=== PATIENT | female | born 1945 | race Caucasian/White ===

== ENCOUNTER 2019-04-09 05:44 | Day surgery (SDC) ==
[2019-03-26 07:53] LABS: URINE SOURCE CLEAN CATCH
[2019-03-26 08:29] LABS: BASO# 0.02 X1000 (0.0-0.2); BASO% 0.3 % (0.0-0.8); EOS# 0.32 X1000 (0.0-0.7); EOS% 4.8 % (0.0-10.0); HEMATOCRIT 41.1 % (37.0-47.0); HEMOGLOBIN 13.6 g/dL (12.0-16.0); LYMPH# 1.11 X1000 (1.2-3.4); LYMPH% 16.6 % (20.5-51.1); MCH 30.8 PG (27-31); MCHC 33.1 g/dL (33-37); MCV 93.2 FL (81-99); MONO# 0.28 X1000 (0.11-0.59); MONO% 4.2 % (1.7-9.3); MPV 10.2 FL (7.4-10.4); NEUT# 4.96 X1000 (1.4-6.5); NEUT% 74.1 % (42.2-75.2); PLT 220 X1000 (130-400); RBC 4.41 XMIL (4.2-5.4); RDW 13.1 % (11.5-14.5); WBC 6.69 X1000 (4.8-10.8)
[2019-03-26 08:32] LABS: BILIRUBIN URINE NEGATIVE (NEGATIVE); BLOOD URINE NEGATIVE (NEGATIVE); COLOR YELLOW; GLUCOSE URINE NEGATIVE (NEGATIVE); KETONE URINE NEGATIVE (NEGATIVE); LEUKOCYTES URINE NEGATIVE (NEGATIVE); NITRITE URINE NEGATIVE (NEGATIVE); PROTEIN URINE NEGATIVE (NEGATIVE); SP GRAVITY URINE 1.012; TURBIDITY URINE CLEAR (CLEAR); UROBILINOGEN URINE NORMAL (NORMAL)
[2019-03-26 08:36] LABS: UR EPITHELIAL CELLS <10 /HPF (<10); URINE BACTERIA NEGATIVE /HPF; URINE RBC <10 /HPF (<10); URINE WBC <10 /HPF (<10)
[2019-03-26 08:37] LABS: INR 0.99; PROTIME 13.2 Seconds (11.0-16.0)
[2019-03-26 08:38] LABS: PTT 29.3 Seconds (22.3-41.8)
[2019-03-26 08:46] LABS: AGAP 12; BUN 15 mg/dL (8-22); CALCIUM 9.2 mg/dL (8.8-10.2); CHLORIDE 103 mmol/L (98-107); COSMO 286; CREATININE 0.9 mg/dL (0.5-0.9); ESTIMATED GFR > 60; GLUCOSE 96 mg/dL (70-104); POTASSIUM 4.3 mmol/L (3.5-5.1); SODIUM 143 mmol/L (136-145); TCO2 28 mmol/L (25-35)
--- NOTE | 2019-03-26 08:48 | EKG Report ---
Test Performed on : 03/26/2019 08:04:58 AM Test Reason : PAT Blood Pressure : / mmHG Vent. Rate : 057 BPM Atrial Rate : 057 BPM P-R Int : 146 ms QRS Dur : 082 ms QT Int : 444 ms P-R-T Axes : 072 082 075 degrees QTc Int : 432 ms Sinus bradycardia. Otherwise normal ECG No previous ECGs available Confirmed by Tony LR, Darnell Martin ([id number]) on 03/27/2019 7:42:33 PM
[2019-04-09] MEDS ORDERED: COLACE ONE (06:24)
[2019-04-09] MEDS ORDERED: LR 1,000 ML ONE (06:25)
[2019-04-09] MEDS ORDERED: PEPCID ONE (06:25)
[2019-04-09] MEDS ORDERED: REGLAN ONE (06:25)
[2019-04-09] MEDS ORDERED: CELEBREX ONE (06:25)
[2019-04-09] MEDS ORDERED: LYRICA ONE (06:25)
[2019-04-09] MEDS ORDERED: KEFZOL 1 GM/D5W 1 GM/50 ML IVPB ONE (06:25)
[2019-04-09] MEDS ORDERED: PRILOSEC PO PRN (06:30)
[2019-04-09] MEDS ORDERED: DURAMORPH ONE (06:50)
[2019-04-09] MEDS ORDERED: MARCAINE 0.25% PF ONE (06:50)
[2019-04-09] MEDS ORDERED: TORADOL ONE (06:50)
[2019-04-09] MEDS ORDERED: VANCOMYCIN ONE (06:51)
[2019-04-09] MEDS ORDERED: SODIUM CHLORIDE 0.9% ONE (06:51)
[2019-04-09] MEDS ORDERED: EXPAREL 1.3% ONE (06:51)
[2019-04-09] MEDS ORDERED: DIPRIVAN 1% ONE ×2 (07:03→08:22)
[2019-04-09] MEDS ORDERED: XYLOCAINE-MPF 2% ONE (07:09)
[2019-04-09] MEDS ORDERED: FENTANYL ONE (07:30)
[2019-04-09] MEDS: CYKLOKAPRON 1,000 MG/NS 2,000 MG/200 ML IVPB ONE ×2 (07:45→09:15)
[2019-04-09] MEDS ORDERED: DECADRON ONE (09:16)
[2019-04-09] MEDS ORDERED: OFIRMEV 1000 MG/ISOTONIC SOLN 1,000 MG/100 ML BOTTLE ONE (09:16)
[2019-04-09] MEDS ORDERED: ZOFRAN ONE (09:16)
[2019-04-09] MEDS ORDERED: EPHEDRINE ONE (09:33)
[2019-04-09] MEDS ORDERED: NS 1,000 ML ONE (10:09)
[2019-04-09 10:16] LABS: URINE SOURCE CATH
[2019-04-09 10:23] LABS: BILIRUBIN URINE NEGATIVE (NEGATIVE); BLOOD URINE TRACE (NEGATIVE); COLOR YELLOW; GLUCOSE URINE NEGATIVE (NEGATIVE); KETONE URINE NEGATIVE (NEGATIVE); LEUKOCYTES URINE NEGATIVE (NEGATIVE); NITRITE URINE NEGATIVE (NEGATIVE); PROTEIN URINE NEGATIVE (NEGATIVE); SP GRAVITY URINE 1.016; TURBIDITY URINE CLEAR (CLEAR); UR EPITHELIAL CELLS <10 /HPF (<10); URINE BACTERIA NEGATIVE /HPF; URINE RBC <10 /HPF (<10); URINE WBC <10 /HPF (<10); UROBILINOGEN URINE NORMAL (NORMAL)
--- NOTE | 2019-04-09 10:42 | Diag Imaging Result Doc PS360 ---
KNEE 1-2 VIEWS-LEFT - 04/09/2019 INDICATION: L TKA TECHNIQUE: Two views COMPARISON: None FINDINGS: There has been left total knee arthroplasty with patellar resurfacing. Alignment is anatomic. No hardware fracture or loosening. IMPRESSION: No complication. Electronically signed by Sim Billings 04/09/2019 10:40 AM
[2019-04-09] MEDS: INDERAL PO SCH (10:50)
[2019-04-09] MEDS ORDERED: OXY IR PO PRN ×2 (11:00)
[2019-04-09] MEDS ORDERED: ZOFRAN PO PRN (11:00)
[2019-04-09] MEDS ORDERED: NS 1,000 ML IV SCH (11:00)
[2019-04-09] MEDS ORDERED: MILK OF MAGNESIA PO PRN (11:00)
[2019-04-09] MEDS ORDERED: MORPHINE IV PRN ×3 (11:00)
[2019-04-09] MEDS: CELEXA PO SCH (12:24)
[2019-04-09] MEDS: ZYRTEC PO SCH (12:24)
[2019-04-09] MEDS: DETROL LA PO SCH (12:34)
[2019-04-09] MEDS: KEFZOL 1 GM/D5W 1 GM/50 ML IVPB IV SCH ×2 (14:35→22:52)
[2019-04-09] MEDS: TYLENOL PO SCH ×2 (15:14→22:52)
--- NOTE | 2019-04-09 20:54 | OPERATIVE NOTE ---
PROCEDURE DATE: 04/09/2019 PREOPERATIVE DIAGNOSIS: Degenerative osteoarthritis, left knee. POSTOPERATIVE DIAGNOSIS: Degenerative osteoarthritis, left knee. PROCEDURE: Left total knee arthroplasty with DePuy Attune size 5 narrow posterior stabilized femur, size 5 tibial tray, 8 mm rotating platform tibial insert, and a 35 mm medialized anatomic patella. SURGEON: Chan Monsivais MD [id number] PROGRAMMER ANALYST: POLY Navarrete who was necessary for proper positioning, retraction and manipulation of the extremity during the case. SECOND CLINICAL MICROBIOLOGIST: POLY Rodriguez and Wilfredo Phelps RN. ANESTHESIA: Spinal. IV FLUIDS: 1300 mL of lactated Ringer's. ESTIMATED BLOOD LOSS: 25 mL. TOURNIQUET TIME: 75 minutes at 350 mmHg. COMPLICATIONS: None. INDICATIONS: The patient is a 74-year-old female with chronic history of worsening pain and discomfort of the left knee. She has continued with pain and discomfort despite appropriate nonoperative treatment. X-rays revealed degenerative osteoarthritis. Recommendation to proceed with left total knee arthroplasty was offered. Risks and benefits of surgery were explained, including the risks of anesthesia, , bleeding, infection, failure to relieve pain, postoperative stiffness, nerve injury, blood clots, and other imponderables. All questions were answered. The patient wished to proceed with surgery. DETAILS OF OPERATION: The patient was taken to the operating room and underwent spinal anesthesia. After adequate anesthesia was obtained, the patient was placed supine on the operating table. The left lower extremity was subsequently prepped and draped in usual sterile fashion. Esmarch was used to exsanguinate the left lower extremity, and the tourniquet was inflated to 300 mmHg. A standard anterior incision was made with a skin knife. Medial and lateral skin envelopes were developed. Standard medial parapatellar arthrotomy was then performed. Patella fat pad was excised. Retractors were then placed and appeared approximately + 1 cm anterior to the PCL insertion, and starting reamer was passed. The intramedullary guide with a distal femoral cutting block was pinned in position. Distal femoral cut was then performed in standard fashion. A sizing block was placed and measured to a size 5. Corresponding pins were placed. A size 5 cutting block was pinned in position. Anterior, posterior and chamfer cuts were then made. Attention was then turned to the proximal tibia. Using the extramedullary guide, the proximal tibia cutting block was pinned in position. Had good alignment confirmed with the alignment raul. The proximal tibia was then resected. The medial and lateral menisci were excised. A curved osteotome was used to remove the posterior osteophytes off the distal femur. A spacer block was then placed and had good soft tissue balance in both flexion and extension. Attention was turned back to the proximal tibia where a size 5 tibial tray appeared to be correct size. It was pinned in position. This was followed by a central reamer and a fin punch. A box cutting guide was pinned on the distal femur. A box cut was performed. A trial femoral component was then placed, and 2 lug holes were drilled. Trial tibial insert was then placed and had good soft tissue balancing. Patella was everted and resected in standard fashion. A 35 appeared to be correct size. Corresponding holes were drilled. A trial component was then placed and had good patellofemoral tracking and soft tissue balancing. The trial components were then removed. Copious irrigation was then performed with antibiotic pulsatile lavage while vancomycin was mixed with cement on back table. Sequential cementing was then performed first with the tibial tray, and excess cement was removed with a [place]uffs followed by the femoral component. Excess cement was removed with a [place]uffs followed by trial tibial insert. Full extension and axial loading was maintained while the cement cured. Patella component was cemented in standard fashion. Patella clamp was placed. While cement was curing, Exparel was placed in deep soft tissue as well as the subcutaneous tissue. After cement had cured, peripheral cement was removed with a small osteotome. The 8 mm rotating platform tibial insert appeared to be correct size. The trial insert was removed. Exparel was placed deep in posterior capsule. The wound was copiously irrigated once again. An 8 mm rotating platform tibial insert was then placed and had good soft tissue balance, good range of motion and good patellofemoral tracking. A 1/8 Hemovac drain was placed and was not sewn in. Copious irrigation then performed once again with antibiotic pulsatile lavage. #1 Vicryl was then used to repair the arthrotomy followed by 2-0 Vicryl to repair subcutaneous tissue and skin jai. Sterile 4x4s, ABD pad, Webril, cryo unit, and Cailn wrap were applied to the left lower extremity. Patient tolerated the procedure well with no complications and transferred to the recovery room in stable condition. cc: Chan Monsivais MD
[2019-04-09] MEDS: COLACE PO SCH (22:52)
[2019-04-09] MEDS: PERIDEX MT SCH (22:53)
[2019-04-10 07:15] LABS: HEMATOCRIT 33.5 % (37.0-47.0)
[2019-04-10 07:26] VITALS: BP 130/64
[2019-04-10 07:46] LABS: AGAP 12; BUN 15 mg/dL (8-22); CALCIUM 8.9 mg/dL (8.8-10.2); CHLORIDE 105 mmol/L (98-107); COSMO 286; CREATININE 0.9 mg/dL (0.5-0.9); ESTIMATED GFR > 60; GLUCOSE 109 mg/dL (70-104); POTASSIUM 4.2 mmol/L (3.5-5.1); SODIUM 143 mmol/L (136-145); TCO2 26 mmol/L (25-35)
[2019-04-10] MEDS: ZYRTEC PO SCH (08:21)
[2019-04-10] MEDS: PERIDEX MT SCH (08:21)
[2019-04-10] MEDS: TYLENOL PO SCH (08:21)
[2019-04-10] MEDS: CELEXA PO SCH (08:22)
[2019-04-10] MEDS: INDERAL PO SCH (08:22)
[2019-04-10] MEDS: COLACE PO SCH (08:22)
[2019-04-10] MEDS: DETROL LA PO SCH (08:22)
[2019-04-10] MEDS ORDERED: ASPIRIN PO SCH (09:00)
--- NOTE | 2019-04-10 09:13 | ORTHOPAEDICS PROGRESS NOTE ---
DATE: 04/10/2019 SUBJECTIVE: The patient is a pleasant 74-year-old female who is 1 day status post left total knee arthroplasty. She is currently resting comfortably. She has no complaints. She was able to ambulate with physical therapy yesterday. OBJECTIVE: On physical exam, patient's left lower extremity: Her wound looks good. There is no signs or symptoms of infection. Calf is soft. She has active dorsiflexion and plantar flexion. She is neurovascularly distally. LABORATORY DATA: Her labs are pending. IMPRESSION: Postoperative day #1 status post left total knee arthroplasty. PLAN: At this point, discharge patient home after physical therapy. We will arrange for outpatient physical therapy. The patient will follow up on 04/21/2019. cc: Chan Monsivais MD
== END 2019-04-10 10:47 | disposition home or self-care (01) ==
LOC: PAT 05:44 → OPS 05:44 → 4N 05:44 → OPS 04-10 10:47
PROVIDERS: ATTEND Orthopaedic Surgery Adult Reconstructive Orthopaedic Surgery